=== PATIENT | male | born 1955 | race Caucasian/White ===

== ENCOUNTER 2018-09-16 17:46 | Emergency (ER) | payer OTHER ==
[~2018-09-16] VITALS: Ht 170.2 cm; Wt 86.2 kg
[2018-09-16] MEDS ORDERED: LOSARTAN-HCTZ1 EAC1 (18:00)
[2018-09-16] MEDS ORDERED: METFORMIN HCL500 MG (18:00)
== END 2018-09-16 20:16 | disposition home or self-care (01) ==
LOC: ER 17:46
DX: L30.8 Other specified dermatitis (principal)